=== PATIENT | female | born 1995 | race African-American/Black ===

== ENCOUNTER 2023-01-08 23:30 | Inpatient (IN) | payer OTHER, SELFPAY ==
[2023-01-08 23:40] VITALS: BP 117/76; PULSE 57; RESP 19; TEMP 35.7; O2SAT 100
[2023-01-08 23:43] VITALS: O2SAT 99
[2023-01-08] MEDS: SODIUM CHLORIDE 0.9% 1,000 ML 200 ML IV (23:50)
[2023-01-08 23:56] VITALS: BMI 23.6
--- NOTE | 2023-01-09 00:15 | P.HP_ITS ---
History of Present Illness History of Present Illness Date Patient Seen: 01/08/23 Time Patient Seen: 23:55 Chief complaint: Flank Pain Narrative: Ms. Gomez is a 27W with no significant medical issues, on no medications who presents to the hospital due to dark colored urine. She notes that on Thursday and Thursday she worked out with more effort than is usual for her, she has not worked out in some time before that. She was primarily doing leg exercises. She states she started having low back pain which was worst on Thursday and is improved today. Her urine remained dark, cola colored, so she presented for further evaluation. She has no fevers/chills. No nausea, vomiting, diarrhea. No dysuria. She takes no medications. She has no substance abuse. She initially presented to [facility] vitals notable for afebrile, heart rate in the 50s, blood pressure 110s/60s, o2 sats 100% on room air. Labs reviewed by me and notable for WBC 4.8, hgb 12.1, plts 245. UA notable for occult blood, negative leuk esterase, 6-10 rbcs, moderate bacteria, and moderate squamous epithelial cells. test negative. Na 138, k 3.8, BUN 14, creatinine 1.0. AST 2742, ALT 557[place] [address]. She was ordered for 2L IV fluids and ordered for bicarb drip. She was transferred for further treatment. Upon arrival at the hospital she feels well. Her back pain is better. She really has minimal leg pain. Meds Home Medications and Allergies Allergies Allergy/AdvReac Type Severity Reaction Status Date / Time No Known Allergies Allergy Verified 01/08/23 23:53 Review of Systems Review of Systems Narrative: 14 systems reviewed and negative aside from what is noted in HPI Exam Vital Signs (past 8 hours): - 01/08/23 23:40 Temperature 96.3 F L Pulse Rate 57 L Respiratory Rate 19 Blood Pressure 117/76 Pulse Oximetry 100 Oxygen Flow Rate 0 Oxygen Flow Rate 0 Narrative Exam Narrative: GEN: no acute distress HEENT: moist mucous membranes, PERRL NECK: trachea midline, no jvd PULM: clear bilaterally CV: bradycardic, no murmurs ABD: soft, nontender EXT: warm and well perfused, no tenderness, no edema NEURO: awake, alert, no focal deficits noted Assessment & Plan Assessment & Plan narrative: 1. Acute rhabdomyolysis -secondary to exercise prior to presentation, primarily leg exercises -initial CK >82,000 at [facility], AST/ALT 2742/557 -initial creatinine 1.0 -did receive ivf at [facility] -start iv fluids with ns at 200cc/hr and adjust as needed -continue to trend ck, lfts, and creatinine closely -did get bicarb gtt at [facility], recheck labs now, check calcium and glucose as well -no evidence of compartment symptom, monitor closely for development of symptoms I have discussed plan and obtained history from the patient. I have discussed plan of care with transferring physician and bedside nurse. I have reviewed labs, and medical notes. CODE: Full Proxy: brother [facility] - Meds 'Current medications' to include all prescriptions, deic-mrx-fkxlyfk products, herbals, cannabis/cannabidiol products, and vitamin/mineral/dietary (nutritional) supplements. I have utilized all available resources to obtain, update, or review the patient?s current medications. [If Yes, STOP here]: Yes
[2023-01-09 04:06] LABS: Add Manual Diff / Slide Review NO; Basophils Absolute Auto 0 /uL (0-100); Basophils Percent Auto 0.7 % (0-2); Eosinophils Absolute Auto 300 /uL (0-450); Hematocrit 33.5 % (36-46); Hemoglobin 11.6 g/dL (12.0-16.0); Lymphocytes Absolute Auto 1800 /uL (1100-4500); Lymphocytes Percent Auto 44.8 % (25-40); Mean Corpuscular HGB Conc 34.5 % (30-36); Mean Corpuscular Hemoglobin 31.3 PG (26-34); Mean Corpuscular Volume 90.6 fL (80-100); Monocytes Absolute Auto 500 /uL (0-900); Monocytes Percent Auto 12.8 % (3-14); Neutrophils Absolute Auto 1400 /uL (1500-7000); Neutrophils Percent Auto 34.7 % (50-75); Platelet Count 209 X10^3/uL (150-400); Red Cell Distribution Width 13.3 % (11.6-14.8)
[2023-01-09 04:15] LABS: Alanine Aminotransferase 505 IU/L (<35); Albumin 3.1 g/dL (3.5-5.0); Albumin Globulin Ratio 1.2 (1.0-2.8); Alkaline Phosphatase 34 U/L (38-126); BUN Creatinine Ratio 12.2 (6-22); Bilirubin Total 0.3 mg/dL (0.2-1.3); Blood Urea Nitrogen 9 mg/dL (7-17); Calcium 7.5 mg/dL (8.4-10.2); Carbon Dioxide 31 mmol/L (22-32); Chloride 104 mmol/L (98-107); Estimated Glomerular Filt Rate > 60 mL/min (>60); Globulin 2.5 g/dL (1.7-4.1); Glucose 91 mg/dL (70-100); HEMOLYSIS < 15 (0-50); Potassium 3.9 mmol/L (3.4-5.1); Sodium 135 mmol/L (137-145); Total Protein 5.6 g/dL (6.3-8.2)
[2023-01-09 04:41] LABS: Aspartate Aminotransferase 2466 IU/L (14-36)
[2023-01-09 06:00] VITALS: BP 101/56; PULSE 57; RESP 16; TEMP 36.7; O2SAT 98
[2023-01-09 08:07] LABS: Creatine Kinase > 160000 U/L (30-135)
[2023-01-09 08:23] LABS: Appearance Urine UA CLEAR; Bilirubin Urine UA NEGATIVE (NEGATIVE); Color Urine UA YELLOW; Glucose Urine UA NEGATIVE (Negative); Ketones Urine UA NEGATIVE (NEGATIVE); Leukocyte Esterase Urine UA NEGATIVE (NEGATIVE); Nitrite Urine UA NEGATIVE (Negative); Occult Blood Urine UA 3+ (Negative); Protein Urine UA 1+ (Negative); Urobilinogen Urine UA 0.2 E.U./dL (0.2)
[2023-01-09 08:33] LABS: pH Urine UA 6.5 (4.5-8.0)
[2023-01-09 08:45] LABS: Bacteria Urine Moderate (10-30); Culture Indicated Urine Cult Not Indicated; RBC Urine 5-10/HPF (0-5/HPF); Squamous Epithelial Cell Urine 1-5 /HPF (0-5/HPF); WBC Urine 1-5/HPF (0-5/HPF)
[2023-01-09] MEDS: SODIUM CHLORIDE 0.9% 1,000 ML 500 ML IV ×5 (09:00→18:51)
--- NOTE | 2023-01-09 10:15 | CM.DANOTE ---
Patient is a 27 yo female who was admitted on 01/08/23 for Flank Pain. Pt has [employer]Ju[employer] for insurance and her PCP is Wing Luna. EMR was reviewed. Per MD, pt admitted with acute Rhabdo secondary to exercise and likely here a few days due to labs and need for regular fluid boluses. Per RN, pt is active and independent in the room with steady gait and no concerns. 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 Pt drives, independent, no DME and has local supportive friends. Pt does not anticipate any needs and provided pt with a note [place] [employer]. Plan: SW to follow for plan of fluids and then d/c home via friend POV once labs stable and normal and any further identified needs. ANETTE Paige
[2023-01-09] MEDS: LIDOCAINE PATCH 1 EACH ADH..PATCH TOP (11:34)
[2023-01-09 12:00] VITALS: BP 109/74; PULSE 62; RESP 18; TEMP 36.3; O2SAT 100
--- NOTE | 2023-01-09 12:47 | P.PN_ITS ---
Subjective Subjective Interval history: 27 year old female admitted with rhabdomyolysis, marked elevation in CK at >899268. Patient with mild bilateral flank pain today, reyes removed due to discomfort, though advised if renal function worsens or we are unable to track without that we would again recommend catheter for accurate monitoring. No fevers or chills, no extremity pain, no swelling noted. Exam Vital Signs (past 8 hours): - 01/09/23 06:00 01/09/23 06:00 01/09/23 12:00 Temperature 98.1 F 97.4 F L Pulse Rate 57 L 62 Respiratory Rate 16 18 Blood Pressure 101/56 L 109/74 Pulse Oximetry 98 98 100 Oxygen Delivery Method Room Air Oxygen Flow Rate 0 0 0 01/09/23 12:00 Temperature Pulse Rate Respiratory Rate Blood Pressure Pulse Oximetry 100 Oxygen Delivery Method Room Air Oxygen Flow Rate 0 Oxygen Delivery Method Room Air Oxygen Flow Rate 0 Narrative Exam Narrative: GEN: no acute distress HEENT: moist mucous membranes, PERRL NECK: trachea midline, no jvd PULM: clear bilaterally CV: bradycardic, no murmurs ABD: soft, nontender EXT: warm and well perfused, no tenderness, no edema NEURO: awake, alert, no focal deficits noted Objective Labs 01/09/23 03:53 01/09/23 03:53 Labs: Laboratory Results - last 24 hr 01/09/23 01/09/23 01/09/23 03:53 03:53 07:00 WBC 4.0 L RBC 3.70 L Hgb 11.6 L Hct 33.5 L MCV 90.6 MCH 31.3 MCHC 34.5 RDW 13.3 Plt Count 209 Neut % (Auto) 34.7 L Lymph % (Auto) 44.8 H [place] % (Auto) 12.8 Eos % (Auto) 7.0 H Baso % (Auto) 0.7 Neut # (Auto) 1400 L Lymph # (Auto) 1800 [place] # (Auto) 500 Eos # (Auto) 300 Baso # (Auto) 0 Sodium 135 L Potassium 3.9 Chloride 104 Carbon Dioxide 31 BUN 9 Creatinine 0.74 Estimated GFR > 60 BUN/Creatinine Ratio 12.2 Glucose 91 Calcium 7.5 L Total Bilirubin 0.3 AST 2466 H ALT 505 H Alkaline Phosphatase 34 L Total Creatine Kinase > 682352 H Total Protein 5.6 L Albumin 3.1 L Globulin 2.5 Albumin/Globulin Ratio 1.2 Urine Color Yellow Urine Appearance Clear Urine pH 6.5 Ur Specific [place] 1.020 Urine Protein 1+ H Urine Glucose (UA) Negative Urine Ketones Negative Urine Occult Blood 3+ H Urine Nitrate Negative Urine Bilirubin Negative Urine Urobilinogen 0.2 Ur Leukocyte Esterase Negative Urine RBC 5-10/hpf H Urine WBC 1-5/hpf Ur Squamous Epith Cells 1-5 /hpf Urine Bacteria Moderate (10-30) H Ur Culture Indicated? Cult not indicated PFSH Social History Smoking Status: Never smoker Assessment & Plan Assessment & Plan narrative: 1. Acute rhabdomyolysis -secondary to exercise prior to presentation, primarily leg exercises -initial CK >82,000 at [facility], AST/ALT 2742/557 likely elevated due to rhabdo. CK >948608 here, Slightly improving AST/ALT. No abdominal pain today, abdominal imaging not indicated unless symptoms develop. -initial creatinine 1.0, now 0.74 today. -did receive ivf at [facility] -Continue IV fluids at 500 cc per hour, if CK downtrending can probably reduce. Urine output is clearing from cola-colored. UA with moderate bacteria but she is asymptomatic and appears contaminated with squamous cells. -continue to trend ck, lfts, and creatinine closely -no evidence of compartment symptom, monitor closely for development of symptoms 2. Asymptomatic bacteuria. I have discussed plan and obtained history from the patient. I have discussed plan of care with bedside nurse and care management team. I have reviewed labs, and medical notes. CODE: Full Proxy: Thomas Gomez, brother
[2023-01-09 13:32] LABS: Creatine Kinase > 160000 U/L (30-135)
[2023-01-09 18:00] VITALS: O2SAT 100
[2023-01-09 18:37] VITALS: BP 112/80; PULSE 60; RESP 17; O2SAT 100
[2023-01-09 20:35] VITALS: BP 113/76; PULSE 57; RESP 18; TEMP 35.7; O2SAT 100
[2023-01-09] MEDS: NICOTINE 14 PATCH 14 MG TOP (21:24)
[2023-01-10] VITALS (7 sets, daily range): BP systolic 108–119; BP diastolic 57–75; PULSE 58–78; RESP 16–18; TEMP 35.9–36.6; O2SAT 100
[2023-01-10] MEDS: SODIUM CHLORIDE 0.9% 1,000 ML 250 ML IV ×3 (01:00→20:41)
[2023-01-10 05:55] LABS: Alanine Aminotransferase 493 IU/L (<35); Albumin 3.5 g/dL (3.5-5.0); Albumin Globulin Ratio 1.3 (1.0-2.8); Alkaline Phosphatase 36 U/L (38-126); BUN Creatinine Ratio 9.1 (6-22); Bilirubin Total 0.3 mg/dL (0.2-1.3); Blood Urea Nitrogen 6 mg/dL (7-17); Calcium 8.3 mg/dL (8.4-10.2); Carbon Dioxide 31 mmol/L (22-32); Chloride 104 mmol/L (98-107); Estimated Glomerular Filt Rate > 60 mL/min (>60); Globulin 2.7 g/dL (1.7-4.1); Glucose 83 mg/dL (70-100); HEMOLYSIS < 15 (0-50); Potassium 4.3 mmol/L (3.4-5.1); Sodium 135 mmol/L (137-145); Total Protein 6.2 g/dL (6.3-8.2)
[2023-01-10 06:08] LABS: Creatine Kinase 143848 U/L (30-135)
[2023-01-10 06:14] LABS: Add Manual Diff / Slide Review NO; Basophils Absolute Auto 0 /uL (0-100); Basophils Percent Auto 0.7 % (0-2); Eosinophils Absolute Auto 300 /uL (0-450); Hematocrit 34.9 % (36-46); Hemoglobin 11.9 g/dL (12.0-16.0); Lymphocytes Absolute Auto 1200 /uL (1100-4500); Lymphocytes Percent Auto 41.3 % (25-40); Mean Corpuscular HGB Conc 34.1 % (30-36); Monocytes Absolute Auto 400 /uL (0-900); Neutrophils Absolute Auto 1000 /uL (1500-7000); Platelet Count 213 X10^3/uL (150-400); Red Blood Cell Count 3.84 X10^6/uL (4.0-5.2); Red Cell Distribution Width 13.5 % (11.6-14.8)
[2023-01-10 07:00] LABS: Aspartate Aminotransferase 1975 IU/L (14-36)
[2023-01-10] MEDS: LIDOCAINE PATCH 1 EACH ADH..PATCH TOP (08:55)
[2023-01-10] MEDS: NICOTINE 14 PATCH 14 MG TOP (08:58)
--- NOTE | 2023-01-10 14:19 | P.PN_ITS ---
Subjective Subjective Interval history: 27-year-old female in good baseline health who is presently hospital day 3., admitted with rhabdomyolysis. Patient reports she would not exercised over the last year or so. She states that on January 05, she restarted an exercise routine. She repeated the exercise routine the next day with a friend. She did a combination of aerobic activity, leg lifts lifting upwards of 180 lb and did ?leg day ?. She knows on January 06, she had a lot of pain and it was difficult for her to move around. Following day, January 07 She also noticed some dark urine and thought she might be dehydrated, so she worked on increasing her intake of fluids. The next day, she noted ongoing dark urine and presented to [facility]. She did have evidence of rhabdomyolysis, and treatment was initiated. Unfortunately there were no beds available at the facility and she was transferred to [facility] for further care. She was admitted here on January 09. On the date of admission, AST was down from 2742 2 2466, ALT was down from 557 to 505, CK was increased to greater than 160,000 from 82,000. She was initially placed on 500 cc/hour of normal saline. Yesterday morning, CK remained greater than 160,000. Due to concerns about risk for volume overload/3rd spacing, IV fluid rate was decreased to 250 cc/hour. She initially had a Muir catheter in which has since been discontinued. She states she is moving about the room well. She denies any other complaints. She does note her urine is a bit darker today than it was yesterday. She does have some ongoing low back pain but denies any pain to the buttocks quadriceps or calf muscles. Exam Vital Signs (past 8 hours): - 01/10/23 08:00 01/10/23 12:00 Temperature 97.1 F L Pulse Rate 58 L Respiratory Rate 17 Blood Pressure 119/68 Pulse Oximetry 100 100 Oxygen Delivery Method Room Air Oxygen Flow Rate 0 Oxygen Delivery Method Room Air Oxygen Flow Rate 0 Narrative Exam Narrative: GEN: Very pleasant adult female, Alert and oriented x 3, NAD HEENT:NC, Face symmetric CHEST: Respiratory excursions symmetric, CTAB CV: RRR, no M/R/G ABD: Soft, NT/ND, BT present in all 4 quadrants, no organomegaly or masses EXTR: warm, well perfused, no C/C/E SKIN: warm and dry, no rash NEURO: Alert and oriented x 3, nonfocal MUSC: No tenderness to palpation of the bilateral calves, quads, upper extremity muscles, or back Objective Labs 01/10/23 05:30 01/10/23 05:30 Labs: Laboratory Results - last 24 hr 01/10/23 01/10/23 05:30 05:30 WBC 3.0 L RBC 3.84 L Hgb 11.9 L Hct 34.9 L MCV 91.0 MCH 31.0 MCHC 34.1 RDW 13.5 Plt Count 213 Neut % (Auto) 35.0 L Lymph % (Auto) 41.3 H [place] % (Auto) 14.0 Eos % (Auto) 9.0 H Baso % (Auto) 0.7 Neut # (Auto) 1000 L Lymph # (Auto) 1200 [place] # (Auto) 400 Eos # (Auto) 300 Baso # (Auto) 0 Sodium 135 L Potassium 4.3 Chloride 104 Carbon Dioxide 31 BUN 6 L Creatinine 0.66 Estimated GFR > 60 BUN/Creatinine Ratio 9.1 Glucose 83 Calcium 8.3 L Total Bilirubin 0.3 AST 1975 H ALT 493 H Alkaline Phosphatase 36 L Total Creatine Kinase 678168 H Total Protein 6.2 L Albumin 3.5 Globulin 2.7 Albumin/Globulin Ratio 1.3 [facility] Social History Smoking Status: Never smoker Assessment & Plan Assessment & Plan narrative: 1. Rhabdomyolysis Overall, she had a fairly severe case. AST is improved today at 1975. ALT is improved at 493. CPK is now measurable at 143,848. Creatinine is within normal limits. I did see her urine and it does have some pink tinge to it, but is clearly much improved. There is some red sediment noted in the urine as well. Will continue IV fluids. Discussed importance of allowing full recovery before resuming heavy physical activity. Did also discuss that she is due for fitness testing with the next month. If that can be delayed towards the end of the month, likely she will be able to participate. However if it is scheduled for earlier in the month I would recommend exemption. Also advised that when she is fully recovered and able to restart activity, she should do it slowly and gradually build up. She expresses understanding. 2. Transaminitis As noted above slowly improving. 3. Leukopenia Mild at 3.0. Likely secondary to acute rhabdomyolysis. Will monitor. 4. Normocytic anemia Mild and expected in a menstruating female 5. Asymptomatic bacteriuria No intervention Code status Full Prophylaxis Low Lillie score Disposition Likely another 48 hours inpatient
[2023-01-10] MEDS: ACETAMINOPHEN 325 MG TABLET 650 MG PO (18:11)
--- NOTE | 2023-01-10 18:45 | PC.NURSE ---
a/o, voices needs. very pleasant young lady continues on IVF (NS at 250cc/hour) via PIV. denies pain most of the day, reports slight discomfort to bilat flank. lidocaine patches cut in half and placed on each side. near end of shift reported slight h/a, PRN tylenol given upon request. CK (High) is very slowly trending down. spent time w/ patient today, explaining lab values, and dx Rhabdo. she wants to take a shower tonight at 2100. [employer] notified to pass on in report to NOC shift.
--- NOTE | 2023-01-10 20:38 | P.PN_ITS ---
Subjective Subjective Interval history: 27-year-old female in good baseline health who is presently hospital day 3., admitted with rhabdomyolysis.? Patient reports she would not exercised over the last year or so.? She states that on January 05, she restarted an exercise routine.? She repeated the exercise routine the next day with a friend.? She did a combination of aerobic activity, leg lifts lifting upwards of 180 lb and did ?leg day ?.? She knows on January 06, she had a lot of pain and it was difficult for her to move around.? Following day, January 07 She also noticed some dark urine and thought she might be dehydrated, so she worked on increasing her intake of fluids.? The next day, she noted ongoing dark urine and presented to [facility].? She did have evidence of rhabdomyolysis, and treatment was initiated.? Unfortunately there were no beds available at the facility and she was transferred to [facility] for further care.? She was admitted here on January 09.? On the date of admission, AST was down from 2742 2 2466, ALT was down from 557 to 505, CK was increased to greater than 160,000 from 82,000. She was initially placed on 500 cc/hour of normal saline.? Yesterday morning, CK remained greater than 160,000.? Due to concerns about risk for volume overload/3rd spacing, IV fluid rate was decreased to 250 cc/hour. She initially had a Muir catheter in which has since been discontinued.? She states she is moving about the room well.? She denies any other complaints.? She does note her urine is a bit darker today than it was yesterday.? She does have some ongoing low back pain but denies any pain to the buttocks quadriceps or calf muscles. Exam Vital Signs (past 8 hours): - 01/10/23 15:00 01/10/23 18:00 01/10/23 20:37 Temperature 97.7 F 97.9 F Pulse Rate 78 67 Respiratory Rate 17 18 Blood Pressure 110/75 108/57 L Pulse Oximetry 100 100 100 Oxygen Delivery Method Room Air Oxygen Flow Rate 0 0 0 Oxygen Delivery Method Room Air Oxygen Flow Rate 0 Objective Labs 01/11/23 05:45 01/11/23 05:45 Labs: Laboratory Results - last 24 hr 01/10/23 01/10/23 05:30 05:30 WBC 3.0 L RBC 3.84 L Hgb 11.9 L Hct 34.9 L MCV 91.0 MCH 31.0 MCHC 34.1 RDW 13.5 Plt Count 213 Neut % (Auto) 35.0 L Lymph % (Auto) 41.3 H [place] % (Auto) 14.0 Eos % (Auto) 9.0 H Baso % (Auto) 0.7 Neut # (Auto) 1000 L Lymph # (Auto) 1200 [place] # (Auto) 400 Eos # (Auto) 300 Baso # (Auto) 0 Sodium 135 L Potassium 4.3 Chloride 104 Carbon Dioxide 31 BUN 6 L Creatinine 0.66 Estimated GFR > 60 BUN/Creatinine Ratio 9.1 Glucose 83 Calcium 8.3 L Total Bilirubin 0.3 AST 1975 H ALT 493 H Alkaline Phosphatase 36 L Total Creatine Kinase 171651 H Total Protein 6.2 L Albumin 3.5 Globulin 2.7 Albumin/Globulin Ratio 1.3 [facility] Social History Smoking Status: Never smoker
[2023-01-11] VITALS: O2SAT 100
[2023-01-11] MEDS: SODIUM CHLORIDE 0.9% 1,000 ML 250 ML IV ×2 (01:43→06:17)
[2023-01-11 05:00] VITALS: BP 113/66; PULSE 58; RESP 18; TEMP 36.3; O2SAT 100
[2023-01-11 06:00] VITALS: O2SAT 100
[2023-01-11 06:02] LABS: Add Manual Diff / Slide Review NO; Basophils Absolute Auto 0 /uL (0-100); Basophils Percent Auto 0.6 % (0-2); Eosinophils Absolute Auto 200 /uL (0-450); Eosinophils Percent Auto 7.4 % (2-4); Hematocrit 34.1 % (36-46); Hemoglobin 11.6 g/dL (12.0-16.0); Lymphocytes Absolute Auto 1200 /uL (1100-4500); Lymphocytes Percent Auto 37.4 % (25-40); Mean Corpuscular HGB Conc 34.1 % (30-36); Mean Corpuscular Hemoglobin 30.9 PG (26-34); Mean Corpuscular Volume 90.7 fL (80-100); Monocytes Absolute Auto 400 /uL (0-900); Monocytes Percent Auto 14.1 % (3-14); Neutrophils Absolute Auto 1300 /uL (1500-7000); Neutrophils Percent Auto 40.5 % (50-75); Platelet Count 213 X10^3/uL (150-400); Red Blood Cell Count 3.77 X10^6/uL (4.0-5.2); Red Cell Distribution Width 13.3 % (11.6-14.8); White Blood Cell Count 3.1 X10^3/uL (4.5-11.0)
[2023-01-11 06:22] LABS: Alanine Aminotransferase 427 IU/L (<35); Albumin 3.3 g/dL (3.5-5.0); Albumin Globulin Ratio 1.3 (1.0-2.8); Alkaline Phosphatase 35 U/L (38-126); BUN Creatinine Ratio 9.9 (6-22); Bilirubin Total 0.3 mg/dL (0.2-1.3); Blood Urea Nitrogen 7 mg/dL (7-17); Calcium 8.3 mg/dL (8.4-10.2); Carbon Dioxide 31 mmol/L (22-32); Chloride 104 mmol/L (98-107); Creatine Kinase 75916 U/L (30-135); Estimated Glomerular Filt Rate > 60 mL/min (>60); Globulin 2.6 g/dL (1.7-4.1); Glucose 85 mg/dL (70-100); HEMOLYSIS < 15 (0-50); Sodium 135 mmol/L (137-145); Total Protein 5.9 g/dL (6.3-8.2)
[2023-01-11 06:28] LABS: Aspartate Aminotransferase 1327 IU/L (14-36)
[2023-01-11] MEDS: NICOTINE 14 PATCH 14 MG TOP (09:05)
[2023-01-11] MEDS: LIDOCAINE PATCH 1 EACH ADH..PATCH TOP (09:05)
[2023-01-11] MEDS: ENOXAPARIN 40 MG/0.4 ML SYRINGE SUBCUT (09:06)
[2023-01-11] MEDS: ACETAMINOPHEN 325 MG TABLET 650 MG PO (09:29)
--- NOTE | 2023-01-11 10:31 | PM.DS.1 ---
History of Present Illness History of Present Illness Chief complaint: Flank Pain Narrative: Per history and physical: Ms. Gomez is a 27W with no significant medical issues, on no medications who presents to the hospital due to dark colored urine. She notes that on Thursday and Thursday she worked out with more effort than is usual for her, she has not worked out in some time before that. She was primarily doing leg exercises. She states she started having low back pain which was worst on Thursday and is improved today. Her urine remained dark, cola colored, so she presented for further evaluation. She has no fevers/chills. No nausea, vomiting, diarrhea. No dysuria. She takes no medications. She has no substance abuse. She initially presented to [facility] vitals notable for afebrile, heart rate in the 50s, blood pressure 110s/60s, o2 sats 100% on room air. Labs reviewed by me and notable for WBC 4.8, hgb 12.1, plts 245. UA notable for occult blood, negative leuk esterase, 6-10 rbcs, moderate bacteria, and moderate squamous epithelial cells. test negative. Na 138, k 3.8, BUN 14, creatinine 1.0. AST 2742, ALT 557. [place] [address]. She was ordered for 2L IV fluids and ordered for bicarb drip. She was transferred for further treatment. Upon arrival at the hospital she feels well. Her back pain is better. She really has minimal leg pain. Discharge Providers Provider Date of admission: 01/08/23 23:30 Discharge Date: 01/11/23 Primary care physician: Wing Luna MD Discharge provider: Cristin Smith MD Summary Hospital Course Discharge Diagnosis: 1. Rhabdomyolysis, improving 2. Transaminitis, improving 3. Leukopenia, mild, improving 4. Normocytic anemia, mild, stable 5. Asymptomatic bacteriuria, no intervention Hospital Course: 27-year-old female in good baseline health who was admitted on 01/09/23 with rhabdomyolysis.? Patient reports she would not exercised over the last year or so.? She states that on January 05, she restarted an exercise routine.? She repeated the exercise routine the next day with a friend.? She did a combination of aerobic activity, leg lifts lifting upwards of 180 lb and did ?leg day ?.? She knows on January 06, she had a lot of pain and it was difficult for her to move around.? Following day, January 07 She also noticed some dark urine and thought she might be dehydrated, so she worked on increasing her intake of fluids.? The next day, she noted ongoing dark urine and presented to [facility].? She did have evidence of rhabdomyolysis, and treatment was initiated.? Unfortunately there were no beds available at the facility and she was transferred to [facility] for further care.? She was admitted here on January 09.? On the date of admission, AST was down from 2742 to 2466, ALT was down from 557 to 505, CK was increased to greater than 160,000 from 82,000. She was initially placed on 500 cc/hour of normal saline.? On 01/09/23, CK remained greater than 160,000.? Due to concerns about risk for volume overload/3rd spacing, IV fluid rate was decreased to 250 cc/hour. Her CPK gradually improved and was 143,848 on 01/10/23 and was down to 75,916 on the date of d/c. Her LFTs also continue to improve with her AST down to 1327 and ALT down to 427 on the date of discharge. Her creatinine remained within normal limits. Her urine remained clear with reddish sediment. She does continue to have some mild low back pain, but is ambulating in the room without difficulty. She is eating and drinking well. At the time of discharge, she is being encouraged to remain off of work for the next week and then to return to light duty. She is to have follow-up CBC CMP and CPK tomorrow, the results of which will be called to me. 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 She is being encouraged to discharge to drink at least 3 L of water daily, which she feels she will have no difficulty doing. Patient is discharged in stable condition. Status at Discharge Cognitive/behavioral status at discharge: at baseline, oriented Overall status at discharge: patient is progressing back to baseline Time Spent with Patient Time spent: Greater than 30 minutes (35 minutes spent coordinating discharge) Exam Vital Signs (past 8 hours): - 01/11/23 06:00 01/11/23 05:00 Temperature 97.4 F L Pulse Rate 58 L Respiratory Rate 18 Blood Pressure 113/66 Pulse Oximetry 100 100 Oxygen Delivery Method Room Air Oxygen Flow Rate 0 Oxygen Delivery Method Room Air Oxygen Flow Rate 0 Narrative Exam Narrative: GEN:? Very pleasant adult female, Alert and oriented x 3, NAD HEENT:NC, Face symmetric CHEST: Respiratory excursions symmetric, CTAB CV: RRR, no M/R/G ABD: Soft, NT/ND, BT present in all 4 quadrants, no organomegaly or masses EXTR: warm, well perfused, no C/C/E SKIN: warm and dry, no rash NEURO: Alert and oriented x 3, nonfocal MUSC:? No tenderness to palpation of the bilateral calves, quads, upper extremity muscles, or back Objective Labs 01/11/23 05:45 01/11/23 05:45 Labs: Laboratory Results - last 24 hr 01/11/23 01/11/23 05:45 05:45 WBC 3.1 L RBC 3.77 L Hgb 11.6 L Hct 34.1 L MCV 90.7 MCH 30.9 MCHC 34.1 RDW 13.3 Plt Count 213 Neut % (Auto) 40.5 L Lymph % (Auto) 37.4 [place] % (Auto) 14.1 H Eos % (Auto) 7.4 H Baso % (Auto) 0.6 Neut # (Auto) 1300 L Lymph # (Auto) 1200 [place] # (Auto) 400 Eos # (Auto) 200 Baso # (Auto) 0 Sodium 135 L Potassium 4.0 Chloride 104 Carbon Dioxide 31 BUN 7 Creatinine 0.71 Estimated GFR > 60 BUN/Creatinine Ratio 9.9 Glucose 85 Calcium 8.3 L Total Bilirubin 0.3 AST 1327 H ALT 427 H Alkaline Phosphatase 35 L Total Creatine Kinase 50188 H D Total Protein 5.9 L Albumin 3.3 L Globulin 2.6 Albumin/Globulin Ratio 1.3 PFSH Social History Smoking Status: Never smoker Discharge Plan Discharge Plan Patient Disposition: Home Provider Discharge Comment: You are being treated for Rhabdomyolysis (muscle breakdown d/t muscle injury) which can increase risk of liver and kidney failure. You are improving but it will take several weeks to fully recover. You may slowly increase your physical activity but I would avoid strenuous activity for the next month or so. Once you have fully recovered, you may slowly resume an exercise regimen. Please work on drinking at least 3 L of water daily for the next week or so. I recommend you remain off of work for 1 additional week, and may return to work on 01/19/2023. I recommend you return to light duty at work for the next 2 weeks. I recommend you delay your fitness testing until late February. If that is not possible, I recommend you be exempted from the fitness test, as heavy physical activity after the degree of injury you had is contraindicated. Follow-up: You are being given a prescription to obtain follow-up labs tomorrow. Those results will be sent to my attention. I will contact you with results. [facility], [facility] to get a follow-up appointment and be seen on January 13. You should have follow-up labs repeated on January 14 or to confirm ongoing improvement. The base physician should determine when you can return to full unrestricted work activities and full unrestricted physical activity. Discharge orders & Medications Prescriptions: New acetaminophen 325 mg Tablet 650 mg PO Q6H PRN (Reason: Fever/Mild Pain (1-3)) Qty: 30 0RF lidocaine 5 % Adhesive Patch,Medicated 1 ea topical BEDTIME Qty: 5 0RF Follow up/Referrals: Wing Luna, DO [Primary Care Provider] - Diet/Activity/Treatments Activity: You may do light stretching, but no aerobic activity and no weight lifting or body weight exercises. Oxygen: N/A Visit Report/Discharge Packet Instructions: Rhabdomyolysis, DI for Rhabdomyolysis Stand Alone Forms: Patient Portal/API, Stroke Signs & Symptoms Discharge Data Primary Care Provider: Wing Luna
[2023-01-11 11:42] VITALS: BP 111/70; PULSE 56; RESP 16; TEMP 36.6; O2SAT 100
[2023-01-11 12:44] VITALS: O2SAT 98
--- NOTE | 2023-01-11 12:55 | PC.NURSE ---
This RN called the [facility] Nurse advice line and Appt Line, in the attempt to get the pt an appt tomorrow f/u with PCP. Spoke to a [facility] sand control worker but they were unable to send anything to pt's PCP at the [facility]. The appt line is only open Thursday through Thursday. Advised the pt to call here PCP first thing tomorrow including her team out at the [facility]. This RN called the [facility] and left an urgent message for the pt's care team, team cascade informing them to contact the pt as she needs an KEN pt and that she was dx with acute rhabdomyolysis.
== END 2023-01-11 16:17 | disposition home or self-care (01) | DRG 558 ==
PROVIDERS: Internal Medicine; Admitting Provider Internal Medicine; PCP Student in an Organized Health Care Education/Training Program; Referring Provider Internal Medicine; Visit Provider Internal Medicine
DX: M62.82 Rhabdomyolysis (principal); R74.01 Elevation of levels of liver transaminase levels; R82.71 Bacteriuria; Z20.822 Contact with and (suspected) exposure to COVID-19
CPT/HCPCS: 36415; 80053; 81001; 82550; 85025; J1650